=== PATIENT | male | born 1975 | race African-American/Black ===

== ENCOUNTER 2016-12-04 22:32 | Emergency (ER) | payer MEDICAID ==
[~2016-12-04] VITALS: Ht 175.3 cm; Wt 90.5 kg
[~2016-12-04 22:32] MED LIST: INSULIN SQ
[2016-12-04 22:47] LABS: GLUCOSE,POINT OF CARE 90 MG/DL (70-110)
[2016-12-04] MEDS ORDERED: IBUPROFEN 800 MG TABLET PO ONE (23:15)
[2016-12-04 23:30] VITALS: BP 133/79
== END 2016-12-04 23:32 | disposition home or self-care (01) ==
LOC: EMS 22:34
DX: R51 Headache (principal); E11.9 Type 2 diabetes mellitus without complications; F17.210 Nicotine dependence, cigarettes, uncomplicated; F19.90 Other psychoactive substance use, unspecified, uncomplicated
CPT/HCPCS: 82962; 99282

== ENCOUNTER 2016-12-06 07:16 | Emergency (ER) | payer MEDICAID ==
[~2016-12-06] VITALS: Ht 175.3 cm; Wt 90.9 kg
[2016-12-06 07:37] LABS: GLUCOSE,POINT OF CARE 97 MG/DL (70-110)
[2016-12-06] MEDS ORDERED: FLUORESCEIN SODIUM 1 MG STRIP ONE (08:37)
[2016-12-06] MEDS ORDERED: PROPARACAINE HCL 0.5% 15 ML OPHTHALMIC SOLUTION OU ONE (08:45)
[2016-12-06] MEDS ORDERED: CIPROFLOXACIN HCL 0.3% 2.5 ML OPHTHALMIC SOLUTION OU ONE (09:00)
[2016-12-06 09:31] VITALS: BP 142/78
== END 2016-12-06 09:35 | disposition home or self-care (01) ==
LOC: EMS 07:16
DX: S05.02XA Injury of conjunctiva and corneal abrasion without foreign body, left eye, initial encounter (principal); S05.01XA Injury of conjunctiva and corneal abrasion without foreign body, right eye, initial encounter; F17.200 Nicotine dependence, unspecified, uncomplicated; R79.89 Other specified abnormal findings of blood chemistry; F15.10 Other stimulant abuse, uncomplicated; E11.9 Type 2 diabetes mellitus without complications; H16.003 Unspecified corneal ulcer, bilateral; X58.XXXA Exposure to other specified factors, initial encounter; Y93.89 Activity, other specified; Y92.89 Other specified places as the place of occurrence of the external cause; Y99.9 Unspecified external cause status
CPT/HCPCS: 82962; 99283

== ENCOUNTER 2017-01-07 12:17 | Inpatient (IN) | payer MEDICAID ==
[~2017-01-07] VITALS: Ht 180.3 cm; Wt 92.7 kg
[2017-01-07 12:53] LABS: GLUCOSE,POINT OF CARE 86 MG/DL (70-110)
[2017-01-07 13:26] LABS: BASOPHILS % (AUTO) 0.4 % (0.0-2.0); EOSINOPHILS % (AUTO) 0.6 % (1.0-6.0); HEMOGLOBIN 14.8 g/dL (13.5-17.5); LYMPHOCYTES # (AUTO) 2.2 K/uL (1.0-4.8); LYMPHOCYTES % (AUTO) 32.5 % (22.0-44.0); MEAN CORPUSCULAR HEMOGLOBIN 26.2 pg (26.0-34.0); MEAN CORPUSCULAR HGB CONC 32.2 G/dL (31.0-37.0); MEAN CORPUSCULAR VOLUME 82 fL (80-100); MONOCYTES # (AUTO) 0.6 K/uL (0.1-1.0); MONOCYTES % (AUTO) 9.2 % (2.0-9.0); NEUTROPHILS # (AUTO) 3.9 K/uL (1.8-7.7); NEUTROPHILS % (AUTO) 57.3 % (40.0-70.0); PLATELET COUNT (AUTO) 317 K/uL (150-450); RED BLOOD CELL COUNT(AUTO) 5.65 MIL/uL (4.50-5.90); RED CELL DISTRIBUTION WIDTH 15.4 % (11.5-14.5); WHITE BLOOD COUNT (AUTO) 6.8 K/uL (4.5-11.0)
[2017-01-07 13:38] LABS: ANION GAP 8 mmol/L (8-16); CALCIUM, TOTAL 9.6 mg/dL (8.8-10.5); CARBON DIOXIDE 28 mmol/L (22-29); CHLORIDE 105 mmol/L (98-107); CREATININE 1.14 mg/dL (0.60-1.30); GLOMERULAR FILTR. RATE CALC > 60 mL/min (>60); POTASSIUM 4.3 mmol/L (3.5-5.1); SODIUM SERUM 141 mmol/L (136-145); UREA NITROGEN, BLOOD 17 mg/dL (7-18)
[2017-01-07 13:44] LABS: ALANINE AMINOTRANSFERASE 25 U/L (12-78); ALBUMIN 3.9 g/dL (3.4-5.0); ASPARTATE AMINOTRANSFERASE 14 U/L (15-37); BILIRUBIN,TOTAL 0.3 mg/dL (0.1-1.0); TOTAL PROTEIN, SERUM 7.9 g/dL (6.4-8.2)
[2017-01-07 14:22] LABS: GLUCOSE,POINT OF CARE 91 MG/DL (70-110)
[2017-01-07] MEDS ORDERED: LORazepam 2 MG TABLET PO PRN (16:30)
[2017-01-07] MEDS ORDERED: ZOLPIDEM TARTRATE 10 MG TABLET PO PRN (16:30)
[2017-01-07] MEDS ORDERED: HALOPERIDOL 5 MG TABLET PO PRN (16:30)
[2017-01-07] MEDS ORDERED: INFLUENZA VIRUS VACCINE QVS 2017-18 (3YR+)/PF 60 MCG/0.5 ML SYRINGE IM ONE (18:00)
[2017-01-07] MEDS ORDERED: PNEUMOCOCCAL VACCINE POLYVALENT 0.5 ML VIAL [PPSV23] IM ONE (18:00)
[2017-01-07 18:27] LABS: GLUCOSE,POINT OF CARE 152 MG/DL (70-110)
[2017-01-07] MEDS ORDERED: INSULIN ASPART 100 UNITS/ML SQ PRN (18:30)
[2017-01-07] MEDS ORDERED: GLUCAGON,HUMAN RECOMBINANT 1 MG VIAL IM PRN (18:30)
[2017-01-07 18:43] VITALS: BP 138/76
[2017-01-07 21:07] LABS: GLUCOSE,POINT OF CARE 109 MG/DL (70-110)
[2017-01-08 07:03] LABS: GLUCOSE,POINT OF CARE 85 MG/DL (70-110)
[2017-01-08 07:08] VITALS: BP 135/70
[2017-01-08 08:15] VITALS: BP 111/60
[2017-01-08 08:53] LABS: HEMOGLOBIN A1C 6.2 % (4.5-6.2)
[2017-01-08 09:36] LABS: CHOL/HDL RATIO 5.5 (4.2-7.3); THYROID STIMULATING HORMONE 0.8 uIU/mL (0.36-3.74)
[2017-01-08] MEDS ORDERED: IBUPROFEN 400 MG TABLET PO PRN (11:00)
[2017-01-08] MEDS ORDERED: ACETAMINOPHEN 325 MG TABLET PO PRN (11:00)
[2017-01-08 11:17] LABS: GLUCOSE,POINT OF CARE 115 MG/DL (70-110)
[2017-01-08] MEDS: ARIPiprazole 5 MG TABLET PO SCH (13:08)
[2017-01-08 16:03] VITALS: BP 117/64
[2017-01-08 17:12] LABS: GLUCOSE,POINT OF CARE 89 MG/DL (70-110)
[2017-01-08] MEDS: MIRTAZAPINE 15 MG TABLET PO SCH (20:15)
[2017-01-08 20:33] LABS: GLUCOSE,POINT OF CARE 126 MG/DL (70-110)
[2017-01-09 01:09] VITALS: BP 123/66
[2017-01-09 07:12] LABS: GLUCOSE,POINT OF CARE 101 MG/DL (70-110)
[2017-01-09 08:56] VITALS: BP 110/68
[2017-01-09] MEDS: ARIPiprazole 5 MG TABLET PO SCH (09:33)
[2017-01-09 11:28] LABS: GLUCOSE,POINT OF CARE 101 MG/DL (70-110)
[2017-01-09 16:07] VITALS: BP 130/67
[2017-01-09 16:47] LABS: GLUCOSE,POINT OF CARE 122 MG/DL (70-110)
[2017-01-09] MEDS ORDERED: ACETAMINOPHEN 325 MG TABLET PO PRN (19:45)
[2017-01-09] MEDS ORDERED: IBUPROFEN 400 MG TABLET PO PRN (19:45)
[2017-01-09] MEDS: MIRTAZAPINE 15 MG TABLET PO SCH (20:11)
[2017-01-09 20:27] LABS: GLUCOSE,POINT OF CARE 129 MG/DL (70-110)
[2017-01-10 03:08] VITALS: BP 137/63
[2017-01-10 06:22] LABS: GLUCOSE,POINT OF CARE 102 MG/DL (70-110)
[2017-01-10] MEDS: ARIPiprazole 5 MG TABLET PO SCH (08:15)
[2017-01-10 08:27] VITALS: BP_SYST 105; BP_SYST 121; BP_DIAS 69; BP_DIAS 72
[2017-01-10] MEDS ORDERED: ARIPiprazole 5 MG TABLET PO ONE (11:45)
[2017-01-10 14:37] LABS: GLUCOSE,POINT OF CARE 99 MG/DL (70-110)
[2017-01-10 16:10] VITALS: BP 114/67
[2017-01-10 16:53] LABS: GLUCOSE,POINT OF CARE 131 MG/DL (70-110)
[2017-01-10] MEDS: MIRTAZAPINE 30 MG TABLET PO SCH (21:06)
[2017-01-11 01:44] VITALS: BP 114/58
[2017-01-11 07:37] LABS: GLUCOSE,POINT OF CARE 98 MG/DL (70-110)
[2017-01-11 08:02] VITALS: BP 111/60
[2017-01-11] MEDS ORDERED: ARIPiprazole 10 MG TABLET PO SCH (09:00)
[2017-01-11 11:03] LABS: GLUCOSE,POINT OF CARE 115 MG/DL (70-110)
[2017-01-11 16:00] VITALS: BP 113/65
[2017-01-11 16:43] LABS: GLUCOSE,POINT OF CARE 157 MG/DL (70-110)
[2017-01-11] MEDS: MIRTAZAPINE 30 MG TABLET PO SCH (21:09)
[2017-01-12] MEDS ORDERED: ARIP10TA8 PO (03:01)
[2017-01-12] MEDS ORDERED: MIRT30 PO (03:01)
[2017-01-12 04:29] VITALS: BP 124/60
== END 2017-01-12 07:15 | disposition home or self-care (01) | DRG 750 ==
LOC: EMS 12:18 → B2S 16:33
PROVIDERS: ADMIT Psychiatry & Neurology Psychiatry; ATTEND Psychiatry & Neurology Psychiatry
PROC: 3E0234Z Introduction of Serum, Toxoid and Vaccine into Muscle, Percutaneous Approach (ICD-10-PCS; principal; 2017-01-07)
DX: F25.1 Schizoaffective disorder, depressive type (principal); R45.851 Suicidal ideations; F15.20 Other stimulant dependence, uncomplicated; F41.9 Anxiety disorder, unspecified; F32.9 Major depressive disorder, single episode, unspecified; F17.210 Nicotine dependence, cigarettes, uncomplicated; E11.9 Type 2 diabetes mellitus without complications; Z59.0 Homelessness; Z23 Encounter for immunization; Z71.51 Drug abuse counseling and surveillance of drug abuser
CPT/HCPCS: 82962; 83036; 84439; 84443; 90471; 99285; 99406; G0480

== ENCOUNTER 2017-01-29 22:37 | Inpatient (IN) | payer MEDICAID ==
[~2017-01-29] VITALS: Ht 180.3 cm; Wt 94.2 kg
[2017-01-29 20:52] LABS: GLUCOSE,POINT OF CARE 187 MG/DL (70-110)
[~2017-01-29 22:37] MED LIST changes: +ARIP10TA8 PO; +GLUCAGON,HUMAN RECOMBINANT 1 MG VIAL IM PRN; +HALOPERIDOL 5 MG TABLET PO PRN; +INSULIN ASPART 100 UNITS/ML SQ PRN; -INSULIN SQ; +LORazepam 2 MG TABLET PO PRN; +MIRT30 PO; +ZOLPIDEM TARTRATE 10 MG TABLET PO PRN
[2017-01-29 23:37] LABS: APPEARANCE,URINE CLEAR (CLEAR); GLUCOSE, URINE (UA) NEGATIVE (NEGATIVE); KETONES,URINE NEGATIVE (NEGATIVE); LEUKOCYTE ESTERASE ,URINE NEGATIVE (NEGATIVE); OCCULT BLOOD,URINE MODERATE (NEGATIVE); PH,URINE 5.5 (5.0-8.0); PROTEIN,URINE POS 1+ (NEGATIVE)
[2017-01-29 23:38] LABS: ADD UA MICROSCOPIC YES
[2017-01-29] MEDS ORDERED: DEXTROSE 50%-WATER 25 GM/50 ML SYG IVP PRN (23:45)
[2017-01-29 23:46] LABS: SQUAMOUS EPITHELIAL CELL,UR Few /LPF (None Seen); WBC,URINE None Seen /HPF (0-5)
[2017-01-29 23:52] LABS: BASOPHILS # (AUTO) 0.02 K/uL (0.00-0.20); BASOPHILS % (AUTO) 0.2 % (0.0-2.0); EOSINOPHILS # (AUTO) 0.09 K/uL (0.00-0.70); EOSINOPHILS % (AUTO) 0.83 % (1.0-6.0); HEMATOCRIT 44.4 % (41-53); HEMOGLOBIN 14.4 g/dL (13.5-17.5); LYMPHOCYTES # (AUTO) 3.3 K/uL (1.0-4.8); LYMPHOCYTES % (AUTO) 30.2 % (22.0-44.0); MEAN CORPUSCULAR HEMOGLOBIN 25.5 pg (26.0-34.0); MEAN CORPUSCULAR HGB CONC 32.4 G/dL (31.0-37.0); MEAN CORPUSCULAR VOLUME 79 fL (80-100); MONOCYTES # (AUTO) 1.2 K/uL (0.1-1.0); MONOCYTES % (AUTO) 10.5 % (2.0-9.0); NEUTROPHILS # (AUTO) 6.4 K/uL (1.8-7.7); NEUTROPHILS % (AUTO) 58.3 % (40.0-70.0); PLATELET COUNT (AUTO) 253 K/uL (150-450); RED BLOOD CELL COUNT(AUTO) 5.65 MIL/uL (4.50-5.90); RED CELL DISTRIBUTION WIDTH 15.9 % (11.5-14.5)
[2017-01-30 00:05] LABS: ANION GAP 8 mmol/L (8-16); CALCIUM, TOTAL 9.1 mg/dL (8.8-10.5); CARBON DIOXIDE 27 mmol/L (22-29); CHLORIDE 108 mmol/L (98-107); CREATININE 1.05 mg/dL (0.60-1.30); GLOMERULAR FILTR. RATE CALC > 60 mL/min (>60); POTASSIUM 3.9 mmol/L (3.5-5.1); SODIUM SERUM 143 mmol/L (136-145); UREA NITROGEN, BLOOD 20 mg/dL (7-18)
[2017-01-30 00:11] LABS: ALANINE AMINOTRANSFERASE 82 U/L (12-78); ALBUMIN 3.8 g/dL (3.4-5.0); ASPARTATE AMINOTRANSFERASE 18 U/L (15-37); BILIRUBIN,TOTAL 0.1 mg/dL (0.1-1.0); TOTAL PROTEIN, SERUM 7.9 g/dL (6.4-8.2)
[2017-01-30 00:22] LABS: RBC MORPHOLOGY COMMENT ABNORMAL RBC MORPH
[2017-01-30 03:26] VITALS: BP 135/84
[2017-01-30 05:33] LABS: GLUCOSE,POINT OF CARE 87 MG/DL (70-110)
[2017-01-30 08:00] LABS: CHOL/HDL RATIO 5.5 (4.2-7.3)
[2017-01-30 08:05] VITALS: BP 137/68
[2017-01-30] MEDS: ARIPiprazole 10 MG TABLET PO SCH (11:28)
[2017-01-30 11:32] LABS: GLUCOSE,POINT OF CARE 86 MG/DL (70-110)
[2017-01-30] MEDS ORDERED: ACETAMINOPHEN 325 MG TABLET PO PRN (15:45)
[2017-01-30] MEDS ORDERED: IBUPROFEN 400 MG TABLET PO PRN (15:45)
[2017-01-30 17:01] VITALS: BP 98/57
[2017-01-30 17:47] LABS: GLUCOSE,POINT OF CARE 97 MG/DL (70-110)
[2017-01-30] MEDS: MIRTAZAPINE 30 MG TABLET PO SCH (20:33)
[2017-01-30 20:42] LABS: GLUCOSE COMMENT 1 FASTING; GLUCOSE,POINT OF CARE 127 MG/DL (70-110)
[2017-01-31 05:52] LABS: GLUCOSE,POINT OF CARE 108 MG/DL (70-110)
[2017-01-31 09:31] VITALS: BP 128/84
[2017-01-31] MEDS: ARIPiprazole 10 MG TABLET PO SCH (10:01)
[2017-01-31 11:52] LABS: GLUCOSE,POINT OF CARE 87 MG/DL (70-110)
[2017-01-31 16:46] VITALS: BP 146/92
[2017-01-31 17:27] LABS: GLUCOSE COMMENT 1 FASTING; GLUCOSE,POINT OF CARE 95 MG/DL (70-110)
[2017-01-31] MEDS: MIRTAZAPINE 30 MG TABLET PO SCH (20:13)
[2017-01-31 20:37] LABS: GLUCOSE COMMENT 1 FASTING; GLUCOSE,POINT OF CARE 141 MG/DL (70-110)
[2017-01-31] MEDS: INSULIN ASPART 100 UNITS/ML SQ PRN (21:14)
[2017-02-01 03:59] VITALS: BP 134/88
[2017-02-01 06:03] LABS: GLUCOSE,POINT OF CARE 94 MG/DL (70-110)
[2017-02-01 08:43] VITALS: BP 127/56
[2017-02-01] MEDS: ARIPiprazole 10 MG TABLET PO SCH (10:18)
[2017-02-01 12:18] LABS: GLUCOSE,POINT OF CARE 114 MG/DL (70-110)
[2017-02-01 17:27] LABS: GLUCOSE,POINT OF CARE 131 MG/DL (70-110)
[2017-02-01] MEDS: MIRTAZAPINE 30 MG TABLET PO SCH (20:25)
[2017-02-01 20:32] LABS: GLUCOSE,POINT OF CARE 135 MG/DL (70-110)
[2017-02-01 22:07] VITALS: BP 124/77
[2017-02-02 05:52] LABS: GLUCOSE,POINT OF CARE 100 MG/DL (70-110)
[2017-02-02 08:09] VITALS: BP 145/75
[2017-02-02] MEDS: ARIPiprazole 10 MG TABLET PO SCH (09:04)
[2017-02-02 11:22] LABS: GLUCOSE,POINT OF CARE 94 MG/DL (70-110)
[2017-02-02 16:15] VITALS: BP_SYST 109; BP_SYST 127; BP_DIAS 74; BP_DIAS 79
[2017-02-02 17:23] LABS: GLUCOSE,POINT OF CARE 104 MG/DL (70-110)
[2017-02-02 20:33] LABS: GLUCOSE,POINT OF CARE 154 MG/DL (70-110)
[2017-02-02] MEDS: MIRTAZAPINE 30 MG TABLET PO SCH (21:13)
[2017-02-02] MEDS: INSULIN ASPART 100 UNITS/ML SQ PRN (21:16)
[2017-02-03 06:17] LABS: GLUCOSE,POINT OF CARE 96 MG/DL (70-110)
[2017-02-03] MEDS: INSULIN ASPART 100 UNITS/ML SQ PRN ×2 (06:50→11:40)
[2017-02-03 08:41] VITALS: BP 124/70
[2017-02-03] MEDS: ARIPiprazole 10 MG TABLET PO SCH (09:57)
[2017-02-03 11:38] LABS: GLUCOSE,POINT OF CARE 103 MG/DL (70-110)
[2017-02-03 16:16] VITALS: BP 136/78
[2017-02-03 17:07] LABS: GLUCOSE,POINT OF CARE 106 MG/DL (70-110)
[2017-02-03] MEDS: MIRTAZAPINE 30 MG TABLET PO SCH (20:16)
[2017-02-03 20:27] LABS: GLUCOSE,POINT OF CARE 110 MG/DL (70-110)
[2017-02-04 05:52] LABS: GLUCOSE,POINT OF CARE 105 MG/DL (70-110)
[2017-02-04] MEDS: ARIPiprazole 10 MG TABLET PO SCH (09:20)
[2017-02-04 09:22] VITALS: BP 111/62
[2017-02-04 11:48] LABS: GLUCOSE,POINT OF CARE 99 MG/DL (70-110)
[2017-02-04 17:13] LABS: GLUCOSE,POINT OF CARE 128 MG/DL (70-110)
[2017-02-04 17:41] VITALS: BP 134/63
[2017-02-04 20:43] LABS: GLUCOSE,POINT OF CARE 136 MG/DL (70-110)
[2017-02-04] MEDS: MIRTAZAPINE 30 MG TABLET PO SCH (21:08)
[2017-02-05 05:37] LABS: GLUCOSE COMMENT 1 Received Meds; GLUCOSE,POINT OF CARE 96 MG/DL (70-110)
[2017-02-05] MEDS: INSULIN ASPART 100 UNITS/ML SQ PRN ×2 (06:47→12:07)
[2017-02-05 08:05] VITALS: BP 104/64
[2017-02-05] MEDS: ARIPiprazole 10 MG TABLET PO SCH (09:19)
[2017-02-05 12:13] LABS: GLUCOSE,POINT OF CARE 94 MG/DL (70-110)
== END 2017-02-05 15:15 | disposition home or self-care (01) | DRG 751 ==
LOC: EMS 22:39 → 3EI 23:05
PROVIDERS: ADMIT Psychiatry & Neurology Child & Adolescent Psychiatry; ATTEND Psychiatry & Neurology Child & Adolescent Psychiatry
DX: F33.2 Major depressive disorder, recurrent severe without psychotic features (principal); E11.9 Type 2 diabetes mellitus without complications; R45.851 Suicidal ideations; F15.90 Other stimulant use, unspecified, uncomplicated; F17.210 Nicotine dependence, cigarettes, uncomplicated; F20.9 Schizophrenia, unspecified; F22 Delusional disorders; F41.9 Anxiety disorder, unspecified; Z79.899 Other long term (current) drug therapy
CPT/HCPCS: 80307; 82962; 87081; 99285; G0480